=== PATIENT | female | born 1955 | race Caucasian/White ===

== ENCOUNTER → 2019-07-18 | Outpatient (CLI) | payer BC, MEDICARE ==
[2015-03-14 02:00] VITALS: BP 137/64
[~2019-07-18] MED LIST: ONDA4TAB10 SL; bentyl
--- NOTE | 2019-07-18 17:18 | RAD ---
Thyroid ultrasound HISTORY: Elevated TSH. FINDINGS: Right thyroid: Measures 4.6 x 1.8 x 1.3 cm. Upper pole cystic nodule measures 3 mm without vascularity. Vascularity is within expected limits. Isthmus: Measures 6 mm. Small hypoechoic nodule measuring 3 mm within the central isthmus without hypervascularity. Another small 3 mm hypoechoic nodule at the junction of the left lateral isthmus with the left lobe of the thyroid without hypervascularity. Left thyroid: Measures 3.9 x 1.1 x 0.8 cm. No additional nodules are seen. Left thyroid vascularity is within normal limits. IMPRESSION: There are 3 small thyroid nodules, each measuring 3 mm. No large mass. Electronically signed by: Mckay James MD (07/18/2019 5:15 PM) [facility]
== END | disposition home or self-care (01) ==
LOC: US 07:49
PROVIDERS: ATTEND Physician Assistant Medical
DX: E04.2 Nontoxic multinodular goiter (principal)
CPT/HCPCS: 76536

== ENCOUNTER → 2021-04-19 | Outpatient (CLI) | payer BC ==
[2015-03-14 02:00] VITALS: BP 137/64
--- NOTE | 2021-04-19 12:51 | CARD ---
MR#: [id number] Date of Study: 04/19/2021 Ordering Physician: KIT TAN, Referring Physician: KIT TAN, Tech: Sarah Brink, [facility] APPROVED REPORT EXAM: Two-dimensional and M-mode echocardiogram with Doppler and color Doppler. Other Information Quality : AverageHR: 105bpm INDICATION Superventricular Tachycardia, Emphysema 2D DIMENSIONS Left Atrium(2D)2.6 (1.6-4.0cm)IVSd1.1 (0.7-1.1cm) Aortic Root(2D)3.0 (2.0-3.7cm)LVDd4.2 (3.9-5.9cm) LVOT Diameter2.0 (1.8-2.4cm)PWd0.9 (0.7-1.1cm) LVDs2.5 (2.5-4.0cm)FS (%) 29.8 % SV32.1 mlLVEF(%)67.9 (>50%) Aortic Valve AoV Peak Otilio.117.5cm/sAoV VTI19.4cm AO Peak GR.5.5mmHgLVOT Peak Otilio.116.3cm/s LVOT VTI 17.53cmAO Mean GR.4mmHg ALEX (VMAX)3.23of4VKK (VTI)2.80cm2 Mitral Valve MV E Jgzejbpb45.1cm/sMV E Peak Gr.5mmHg MV DECEL [id number] A Iyjftmsi888.8cm/s MV E Mean Gr.2mmHgE/A Ratio0.6 Pulmonary Valve PV Peak Zrzlruge718.6cm/sPV Peak Grad.4mmHg Tricuspid Valve TR P. Pvmuyyqw808ai/sRAP SCMXAFNU8spKe TR Peak Gr.54wfFrVEBB17hzWf LEFT VENTRICLE The left ventricle is normal size. There is normal left ventricular wall thickness. The left ventricu lar systolic function is normal. The Ejection Fraction is 65%. There is normal LV segmental wall gabriel on. Transmitral Doppler flow pattern is Grade I-abnormal relaxation pattern. RIGHT VENTRICLE The right ventricle is normal size. There is normal right ventricular wall thickness. The right ventr icular systolic function is normal. ATRIA The left atrium size is normal. The right atrium size is normal. The interatrial septum is intact wit h no evidence for an atrial septal defect or patent foramen ovale as noted on 2-D or Doppler imaging. AORTIC VALVE The aortic valve is normal in structure and function. Doppler and Color Flow revealed no significant aortic regurgitation. There is no significant aortic valvular stenosis. Calculated aortic valve area is 2.9 cm2 with maximum pressure gradient of 6 mmHg and mean pressure gradient of 4 mmHg. MITRAL VALVE The mitral valve is normal in structure and function. There is no evidence of mitral valve prolapse. There is no mitral valve stenosis. Doppler and Color Flow revealed no mitral valve regurgitation note d. TRICUSPID VALVE The tricuspid valve is normal in structure and function. Doppler and Color Flow revealed trace tricus pid regurgitation with an estimated PAP of 20 mmHg. There is no tricuspid valve stenosis. PULMONIC VALVE The pulmonic valve is not well visualized. Doppler and Color Flow revealed no pulmonic valvular regur gitation. GREAT VESSELS The aortic root is normal in size. The ascending aorta is normal in size. The IVC is normal in size a nd collapses >50% with inspiration. PERICARDIAL EFFUSION There is no evidence of significant pericardial effusion. Critical Notification Critical Value: No <Conclusion> The left ventricular systolic function is normal. The Ejection Fraction is 65%. There is normal LV segmental wall motion. Transmitral Doppler flow pattern is Grade I-abnormal relaxation pattern. Trace tricuspid regurgitation with an estimated PAP of 20 mmHg. There is no evidence of significant pericardial effusion. Signed by : Yuniel Alvarez, Electronically Approved : 04/19/2021 12:50:36
== END ==
LOC: ECHO 08:08
PROVIDERS: ATTEND Internal Medicine Cardiovascular Disease
DX: I47.1 Supraventricular tachycardia (principal); J43.9 Emphysema, unspecified
CPT/HCPCS: 93306

== ENCOUNTER → 2021-07-29 | Outpatient (CLI) | payer BC ==
[2015-03-14 02:00] VITALS: BP 137/64
--- NOTE | 2021-07-29 10:14 | RAD ---
CT ABDOMEN+PELVIS WO History: Nausea and vomiting Comparison: CT abdomen pelvis 03/12/2015 Technique: CT of the abdomen and pelvis without contrast Findings: Partially visualized right middle lobe airspace opacities involving the right middle lobe, left lower and to lesser extent right lower lobes. No pleural effusion. The liver is unremarkable. Status post cholecystectomy. The common bile duct is enlarged up to 1.9 cm diameter. The pancreas, spleen, and adrenal glands are unremarkable. Bilateral renal vascular calcif ications. No nephrolithiasis. Right renal cyst. No hydronephrosis. The bladder is decompressed. Status post hysterectomy. No pelvic masses. The stomach is relatively decompressed. Small bowel is unremarkable. Normal appendix. Mild colonic st ool burden. No pericolonic inflammatory changes. Atherosclerotic calcifications of the aorta and iliac arteries. No free air or free fluid. No adenopa thy. Soft tissues are unremarkable. Multilevel degenerative changes in the lumbar spine with prominen t anterior osteophytes and disc space narrowing greatest at L4-L5. Impression: 1. Multifocal lower lung airspace consolidations concerning for atypical or multifocal pneumonia. 2. Enlargement of the common bile duct to 1.9 cm status post cholecystectomy. Recommend clinical/lab oratory correlation for cholestasis. ------ Exposure: One or more of the following individualized dose reduction techniques were utilized for thi s examination: 1. Automated exposure control 2. Adjustment of the mA and/or kV according to patient size 3. Use of iterative reconstruction technique. Electronically signed by: Christiano Evans MD (07/29/2021 10:12 AM) [id number]
== END ==
LOC: CT 07:53
PROVIDERS: ATTEND Physician Assistant Medical
DX: N28.1 Cyst of kidney, acquired (principal); I70.0 Atherosclerosis of aorta; M47.816 Spondylosis without myelopathy or radiculopathy, lumbar region; M25.78 Osteophyte, vertebrae; M48.061 Spinal stenosis, lumbar region without neurogenic claudication; Z90.710 Acquired absence of both cervix and uterus; Z90.49 Acquired absence of other specified parts of digestive tract
CPT/HCPCS: 74176